=== PATIENT | female | born 1990 | race Caucasian/White ===

== ENCOUNTER → 2023-02-17 15:48 | Outpatient (CLI) | payer OTHER, SELFPAY ==
--- NOTE | ~2023-02-17 | XR_ITS ---
EXAM: XR lumbar spine 2-3V DATE: 02/17/2023 16:12 HISTORY: Chronic Low back pain . COMPARISON: None available. FINDINGS: 5 nonrib-bearing lumbar-type vertebral bodies. Pedicles intact. Normal vertebral body alig nment. Mild anterior wedge deformity at T11 and T12, likely physiologic Lumbar vertebral body heights preserved. Mild disc space narrowing at L3-4. Multilevel marginal osteophytosis. Normal facets and p osterior elements. No fracture or dislocation. IMPRESSION: Mild lumbar degenerative disc disease. Reviewed, dictated and finalized at location K.
== END ==
PROVIDERS: PCP Nurse Practitioner Family; Visit Provider Chiropractor
DX: M51.36 Other intervertebral disc degeneration, lumbar region (principal)
CPT/HCPCS: 72100